=== PATIENT | male | born 1930 | race Caucasian/White ===

== ENCOUNTER 2018-09-27 20:09 | Emergency (ER) | payer OTHER ==
[~2018-09-27] VITALS: Ht 172.7 cm; Wt 61.2 kg
[2018-09-27] MEDS ORDERED: TDAP DIPH,PERTUSS,TET VAC/PF 0.5 ML DISP.SYRIN IM ONE ×2 (20:30→21:03)
[2018-09-27] MEDS ORDERED: ACETAMINOPHEN 325 MG TABLET PO ONE (20:30)
[2018-09-27] MEDS ORDERED: ACETAMINOPHEN 325 MG TABLET ONE (21:03)
--- NOTE | 2018-09-27 21:50 | NUR ---
PATIENT IN ROOM LAYING ON GURNY INTERACTING WELL WITH SON IN ROOM. NO DISTRESS NOTED.
--- NOTE | 2018-09-27 22:45 | NUR ---
Patient discharged to home in stable conditon WITH SONS TAKING PATIENT HOME. Written and verbal after care instructions given. Patient verbalizes understanding of instructions. ASSISTED BY STAFF TO PRIVATE VEHICLE WITH SON TAKING PATIENT HOME
[2018-09-27 22:46] VITALS: BP 135/78
== END 2018-09-27 22:47 | disposition home or self-care (01) ==
LOC: ER 20:10
DX: S01.81XA Laceration without foreign body of other part of head, initial encounter (principal); W01.198A Fall on same level from slipping, tripping and stumbling with subsequent striking against other object, initial encounter; Y93.89 Activity, other specified; Y92.89 Other specified places as the place of occurrence of the external cause; Y99.8 Other external cause status
CPT/HCPCS: 70450; 72125; 90715; A4217; A4663

== ENCOUNTER 2021-04-29 12:45 | Emergency (ER) | payer OTHER ==
[~2021-04-29] VITALS: Ht 172.7 cm; Wt 59.0 kg
[~2021-04-29 12:45] MED LIST: CARB1TAB21 PO; FLORINEF; FLUD0.1T PO; FOLI1TAB94 PO; LEVO50TA8 PO; LIPITOR; PRAV20TA4 PO; SINEMET
[2021-04-29] MEDS ORDERED: CLINDAMYCIN PHOSPHATE IV 600 MG in IV DEXTROSE 5% 100 ML IV ONE (13:00)
[2021-04-29] MEDS ORDERED: IV NORMAL SALINE 1000 ML BAG IV ONE (13:00)
[2021-04-29] MEDS ORDERED: CEFEPIME HCL 1 G in IV DEXTROSE 5% 50 ML IV ONE (13:00)
[2021-04-29] MEDS ORDERED: DEXAMETHASONE SOD PHOSPHATE 4 MG INJ IV ONE (13:00)
[2021-04-29] MEDS ORDERED: VANCOMYCIN IV 1,000 MG in IV DEXTROSE 5% 250 ML IV ONE (13:00)
[2021-04-29] MEDS ORDERED: DEXAMETHASONE SOD PHOSPHATE 10 MG INJ ONE (13:35)
[2021-04-29] MEDS ORDERED: CEFEPIME HCL 1 G VIAL ONE (13:44)
[2021-04-29 14:04] LABS: MEAN CORPUSCULAR HEMOGLOBIN 29.8 uug (23.8-33.4); MEAN CORPUSCULAR VOLUME 91.8 fL (73.0-96.2); PLATELET COUNT (AUTO) 211 K/uL (152-348)
[2021-04-29 14:22] LABS: CREATININE 1.2 mg/dL (0.6-1.3)
[2021-04-29 14:28] LABS: *BILIRUBIN,URIN NEGATIVE (NEGATIVE); *BLOOD, URINE 2+ (NEGATIVE); *CLARITY,URINE CLEAR (CLEAR); *COLOR,URINE YELLOW (YELLOW); *KETONES,URINE TRACE (NEGATIVE); *UROBILINOGEN,URINE 0.2 E.U./dl (NORMAL); LEUKOCYTE ESTERASE ,URINE NEGATIVE (NEGATIVE); NITRITE, URINE NEGATIVE (NEGATIVE); UGLUCOSE NEGATIVE (NEGATIVE)
[2021-04-29 14:39] LABS: BILIRUBIN,DIRECT 0.1 mg/dL (0.0-0.2); BILIRUBIN,TOTAL 0.5 mg/dL (0.2-1.0); TOTAL PROTEIN, SERUM 6.4 g/dL (6.4-8.2)
[2021-04-29] MEDS ORDERED: VANCOMYCIN IV 200 ML ONE (14:40)
[2021-04-29] MEDS ORDERED: CLINDAMYCIN PHOSPHATE 600 MG/4 ML VIAL ONE (14:40)
[2021-04-29 16:22] LABS: BACTERIA,URINE FEW /HPF (NONE SEEN); MUCUS,URINE FEW /LPF (0-FEW); RBC,URINE 20-50 /HPF (0-3); SQUAMOUS EPITHELIAL CELL,UR FEW /HPF (NONE SEEN); WBC,URINE 0-3 /HPF (0-3)
--- NOTE | 2021-04-29 19:59 | NUR ---
VONDA FROM [facility] CALLED BACK WITH TRANSFER INFO. PATIENT WILL BE GOING TO [facility] ROOM [facility]. ACCEPTING MD IS DR MARTINEZ. CALL FOR REPORT IS . ALS PRN ETA SKIN CARE TECHNICIAN IS [id number].
--- NOTE | 2021-04-29 20:15 | NUR ---
[facility] Dr García currently discussing dispo of pt.
--- NOTE | 2021-04-29 20:49 | NUR ---
business support specialist here to transport pt to [facility]
--- NOTE | 2021-04-29 20:50 | NUR ---
ED spoke with Pts point person and confirmed that family is ok with transfer to [facility]. Pt is being loaded up currently
--- NOTE | 2021-04-29 21:24 | NUR ---
Called [phone] and gave radhaugh report to recieving NALINI Red at [facility] using SBAR method. Pt is loaded up and ready to depart from ED.
--- NOTE | 2021-04-29 21:39 | NUR ---
Pt is currently enroute to [facility]. Pt looks good VSS 135/73, 96% NC, 86bpm, 18rpm. Spoke with son Anjum and informed him that pt is enroute to [place].
[2021-04-29 21:42] VITALS: BP 135/73
== END 2021-04-29 21:44 | disposition short-term general hospital (02) ==
LOC: ER 12:45
DX: A41.9 Sepsis, unspecified organism (principal); J15.9 Unspecified bacterial pneumonia; U09.9 Post COVID-19 condition, unspecified; G20 Parkinson's disease; F02.80 Dementia in other diseases classified elsewhere, unspecified severity, without behavioral disturbance, psychotic disturbance, mood disturbance, and anxiety; Z86.16 Personal history of COVID-19; E78.5 Hyperlipidemia, unspecified; R94.31 Abnormal electrocardiogram [ECG] [EKG]
CPT/HCPCS: 51702; 71045; 80048; 80076; 81001; 83605 ×2; 83880; 84145; 84484; 85025; 85730; 87040 ×2; 87086; 93005; 96365; 96366; 96367; 96368; 96375; 99291; J0692; J1100; J3370; J3490; U0003; 70030-TC; A4663; C1758; J7030